=== PATIENT | male | born 1980 | race African-American/Black ===

== ENCOUNTER 2019-10-05 07:29 | Emergency (ER) | payer MEDICAID ==
[~2019-10-05] VITALS: Ht 172.7 cm; Wt 77.0 kg
[2019-10-05] MEDS ORDERED: ACETAMINOPHEN 325MG TABLET PO ONE (08:15)
[2019-10-05] MEDS ORDERED: IBUPROFEN 600MG TABLET PO ONE (08:15)
[2019-10-05 10:18] VITALS: BP 100/68
== END 2019-10-05 10:19 | disposition home or self-care (01) ==
LOC: ER 07:29
DX: B34.9 Viral infection, unspecified (principal)
CPT/HCPCS: 87804; 99283